=== PATIENT | female | born 1975 | race Hispanic/Latino ===

== ENCOUNTER 2021-12-02 08:28 | Outpatient (CLI) | payer OTHER ==
[2021-12-02 09:36] LABS: Albumin 4.1 g/dL (3.9-5)
== END 2021-12-02 08:29 | disposition home or self-care (01) ==
LOC: LAB 08:28
PROVIDERS: ATTEND Internal Medicine
DX: R16.0 Hepatomegaly, not elsewhere classified (principal); E87.1 Hypo-osmolality and hyponatremia; E87.6 Hypokalemia; D64.9 Anemia, unspecified; K57.30 Diverticulosis of large intestine without perforation or abscess without bleeding; R18.8 Other ascites
CPT/HCPCS: 36415; 80076